=== PATIENT | female | born 1990 | race African-American/Black ===

== ENCOUNTER 2021-09-10 11:04 | Emergency (ER) | payer OTHER ==
[~2021-09-10] VITALS: Ht 167.6 cm; Wt 128.4 kg
[2021-09-10] MEDS ORDERED: LEVOTHYROXINE25 MCG PO (11:15)
[2021-09-10] MEDS ORDERED: PRENA1 TRUE CO1 EACH PO (11:15)
== END 2021-09-10 15:22 | disposition home or self-care (01) ==
LOC: ER 11:04
DX: O20.8 Other hemorrhage in early pregnancy (principal); O36.80X0 Pregnancy with inconclusive fetal viability, not applicable or unspecified; O26.852 Spotting complicating pregnancy, second trimester; O26.891 Other specified pregnancy related conditions, first trimester; R10.2 Pelvic and perineal pain; Z3A.01 Less than 8 weeks gestation of pregnancy; Z20.822 Contact with and (suspected) exposure to COVID-19

== ENCOUNTER 2021-09-20 12:54 | Emergency (ER) | payer OTHER ==
[~2021-09-20] VITALS: Ht 167.6 cm; Wt 121.6 kg
[~2021-09-20 12:54] MED LIST: LEVOTHYROXINE25 MCG PO; PRENA1 TRUE CO1 EACH PO
[2021-09-20] MEDS ORDERED: DIALYVITE 800-1 EACH PO (13:27)
[2021-09-20] MEDS ORDERED: PROMETRIUM200 MG PO (13:31)
== END 2021-09-20 18:36 | disposition home or self-care (01) ==
LOC: ER 12:54
DX: O20.9 Hemorrhage in early pregnancy, unspecified (principal); N39.0 Urinary tract infection, site not specified; R31.9 Hematuria, unspecified; Z3A.08 8 weeks gestation of pregnancy

== ENCOUNTER 2021-10-16 10:07 | Outpatient (CLI) | payer OTHER ==
[~2021-10-16 10:07] MED LIST changes: +DIALYVITE 800-1 EACH PO; +PROMETRIUM200 MG PO
== END 2021-10-16 11:00 | disposition home or self-care (01) ==
LOC: PRENATAL 10:07
PROVIDERS: ATTEND Obstetrics & Gynecology Maternal & Fetal Medicine
DX: O26.851 Spotting complicating pregnancy, first trimester (principal); O36.80X1 Pregnancy with inconclusive fetal viability, fetus 1; O99.891 Other specified diseases and conditions complicating pregnancy; O99.211 Obesity complicating pregnancy, first trimester; O34.11 Maternal care for benign tumor of corpus uteri, first trimester; Z36.89 Encounter for other specified antenatal screening; Z3A.12 12 weeks gestation of pregnancy

== ENCOUNTER 2021-12-13 11:35 | Outpatient (CLI) | payer OTHER | END 2021-12-13 14:00 | disposition home or self-care (01) | LOC: PRENATAL 11:35 | PROVIDERS: ATTEND Obstetrics & Gynecology Maternal & Fetal Medicine | DX: O35.0XX1 Maternal care for (suspected) central nervous system malformation in fetus, fetus 1 (principal); O35.3XX1 Maternal care for (suspected) damage to fetus from viral disease in mother, fetus 1; O98.512 Other viral diseases complicating pregnancy, second trimester; O99.891 Other specified diseases and conditions complicating pregnancy; O99.212 Obesity complicating pregnancy, second trimester; O34.12 Maternal care for benign tumor of corpus uteri, second trimester; Z36.89 Encounter for other specified antenatal screening; Z3A.20 20 weeks gestation of pregnancy ==

== ENCOUNTER 2022-02-05 10:05 | Outpatient (CLI) | payer OTHER | END 2022-02-05 11:32 | disposition home or self-care (01) | LOC: PRENATAL 10:05 | PROVIDERS: ATTEND Obstetrics & Gynecology Maternal & Fetal Medicine | DX: O26.849 Uterine size-date discrepancy, unspecified trimester (principal); O99.891 Other specified diseases and conditions complicating pregnancy; O99.210 Obesity complicating pregnancy, unspecified trimester; O34.10 Maternal care for benign tumor of corpus uteri, unspecified trimester ==

== ENCOUNTER 2022-03-22 09:39 | Outpatient (CLI) | payer OTHER | END 2022-03-22 11:42 | disposition home or self-care (01) | LOC: PRENATAL 09:39 | PROVIDERS: ATTEND Obstetrics & Gynecology Maternal & Fetal Medicine | DX: O26.849 Uterine size-date discrepancy, unspecified trimester (principal); O99.210 Obesity complicating pregnancy, unspecified trimester; Z3A.34 34 weeks gestation of pregnancy ==

== ENCOUNTER 2022-04-10 09:11 | Outpatient (CLI) | payer OTHER | END 2022-04-10 10:45 | disposition home or self-care (01) | LOC: PRENATAL 09:11 | PROVIDERS: ATTEND Obstetrics & Gynecology Maternal & Fetal Medicine | DX: O26.849 Uterine size-date discrepancy, unspecified trimester (principal); O99.891 Other specified diseases and conditions complicating pregnancy; O99.210 Obesity complicating pregnancy, unspecified trimester; O34.10 Maternal care for benign tumor of corpus uteri, unspecified trimester; O41.00X0 Oligohydramnios, unspecified trimester, not applicable or unspecified; Z3A.37 37 weeks gestation of pregnancy ==

== ENCOUNTER 2022-04-11 11:58 | Inpatient (IN) | payer OTHER ==
[~2022-04-11] VITALS: Ht 167.6 cm; Wt 1215.6 kg
[2022-04-12] MEDS ORDERED: SYNTHROID50 MCG PO (06:22)
[2022-04-15] MEDS ORDERED: IBUPROFEN800 MG PO (07:21)
== END 2022-04-15 13:50 | disposition home or self-care (01) | DRG 787 ==
LOC: OB/GYN 04-12 05:16 → O/R 04-12 05:16 → OB/GYN 04-12 13:30
PROVIDERS: ADMIT Specialist; ATTEND Specialist
PROC: 4A1HXCZ Monitoring of Products of Conception, Cardiac Rate, External Approach (ICD-10-PCS; 2022-04-12)
PROC: 10D00Z1 Extraction of Products of Conception, Low, Open Approach (ICD-10-PCS; principal; 2022-04-12 07:00)
DX: O33.8 Maternal care for disproportion of other origin (principal); O41.03X0 Oligohydramnios, third trimester, not applicable or unspecified; Z3A.37 37 weeks gestation of pregnancy; Z37.0 Single live birth; Z20.822 Contact with and (suspected) exposure to COVID-19

== ENCOUNTER 2023-10-28 16:21 | Emergency (ER) | payer OTHER ==
[~2023-10-28] VITALS: Ht 162.6 cm; Wt 107.0 kg
[~2023-10-28 16:21] MED LIST changes: +IBUPROFEN800 MG PO; +SYNTHROID50 MCG PO
[2023-10-28 17:37] LABS: PH,URINE 5.5 (5.0-8.0); URINE APPEARANCE Clear; URINE BILIRRUBIN Negative (NEGATIVE); URINE BLOOD Moderate; URINE COLOR Yellow; URINE GLUCOSE Negative (NEGATIVE); URINE LEUKOCYTE Trace; URINE NITRATE Negative; URINE PROTEIN Negative (NEGATIVE); URINE UROBILINOGEN 0.2 E.U./dl
[2023-10-28 17:38] LABS: HEMATOCRIT 38.8 % (36.0-45.00); HEMOGLOBIN 12.9 g/dL (12.0-15.00); MEAN CELL VOLUME 82.7 fL (80.00-100.00); MEAN CORPUSCULAR HEMOGLOBIN 27.5 pg (27.00-32.0); MEAN CORPUSCULAR HGB CONC 33.3 g/dl (32.0-36.0); PLATELET COUNT 319 K/uL (150-450); RED BLOOD COUNT 4.69 M/uL (4.00-6.00); RED CELL DISTRIBUTION WIDTH 14.3 % (11.5-14.5)
[2023-10-28 17:39] LABS: URINE BACTERIA 2077.6 uL (0.0-1933); URINE EPITHELIAL CELLS 43.5 uL (0.0-38.8); URINE RBC 7.4 uL (0.0-20.8); URINE WBC 21.3 uL (0.0-23.2)
[2023-10-28 17:55] LABS: INR 0.95
[2023-10-28 18:13] LABS: ANION GAP 7 (10.0-20.0); BLOOD UREA NITROGEN 12 mg/dL (7-18); BUN CREA RATIO 16 (7.0-25.0); CALCIUM 8.9 mg/dL (8.5-10.1); CARBON DIOXIDE 28 mEq/L (21-32); CHLORIDE 109 mmol/L (98-107); CREATININE SERUM 0.73 mg/dL (0.55-1.02); GFR 91.81; GLUCOSE FASTING 87 mg/dL (65-100); OSMOLALITY SERUM 279 MOSM/KG (275-295); POTASSIUM 3.75 mEq/L (3.5-5.1); SODIUM 140 mmol/L (136-145)
[2023-10-28 18:14] LABS: HCG QUANTITATIVE < 1 mUI/mL (1-3)
== END 2023-10-28 20:14 | disposition home or self-care (01) ==
LOC: ER 16:21
PROVIDERS: General Practice
DX: O20.8 Other hemorrhage in early pregnancy (principal); Z3A.01 Less than 8 weeks gestation of pregnancy; Z91.013 Allergy to seafood

== ENCOUNTER 2023-10-31 10:43 | Emergency (ER) | payer OTHER ==
[~2023-10-31] VITALS: Ht 167.6 cm; Wt 123.4 kg
[2023-10-31 12:34] LABS: HEMOGLOBIN 13.1 g/dL (12.0-15.00); MEAN CELL VOLUME 81.6 fL (80.00-100.00); MEAN CORPUSCULAR HEMOGLOBIN 27.5 pg (27.00-32.0); MEAN CORPUSCULAR HGB CONC 33.7 g/dl (32.0-36.0); PLATELET COUNT 331 K/uL (150-450); RED BLOOD COUNT 4.78 M/uL (4.00-6.00); RED CELL DISTRIBUTION WIDTH 14.4 % (11.5-14.5)
== END 2023-10-31 15:49 | disposition home or self-care (01) ==
LOC: ER 10:43
DX: O03.9 Complete or unspecified spontaneous abortion without complication (principal); Z91.013 Allergy to seafood

== ENCOUNTER 2025-11-22 06:08 | Emergency (ER) | payer OTHER ==
[~2025-11-22] VITALS: Ht 167.6 cm; Wt 129.7 kg
[2025-11-22] MEDS ORDERED: PRENATABS FA T1 EACH PO (06:15)
[2025-11-22] MEDS ORDERED: KETOROLAC TROMETHAMINE 10 MG TABLET PO ONE ×2 (07:45→08:37)
[2025-11-22 10:57] LABS: BASO % 0.4 % (0.1-1.2); EOS # 0.15 (0.04-0.54); EOS % 1.1 % (0.7-7.0); LYMPH # 2.13 (1.18-3.74); LYMPH % 16.2 % (19.3-53.1); MEAN PLATELET VOLUME 9.40 fl (9.4-12.4); MONO # 0.78 (0.24-0.82); MONO % 5.9 % (4.7-12.5); NEUT # 9.94 (1.56-6.13); NEUT % 75.9 % (34.0-71.1); RED CELL DISTRIBUTION WIDTH 13.9 % (11.6-14.4)
[2025-11-22 11:06] LABS: URINE APPEARANCE Clear; URINE BILIRRUBIN Negative (NEGATIVE); URINE BLOOD Negative; URINE COLOR Yellow; URINE GLUCOSE Negative (NEGATIVE); URINE KETONE Negative (NEGATIVE); URINE LEUKOCYTE Negative; URINE NITRATE Negative; URINE PROTEIN Negative (NEGATIVE); URINE UROBILINOGEN 1.0 E.U./dl
[2025-11-22 11:08] LABS: URINE BACTERIA 2275.3 uL (0.0-1933); URINE EPITHELIAL CELLS 42.3 uL (0.0-38.8); URINE RBC 4.2 uL (0.0-20.8); URINE WBC 16.0 uL (0.0-23.2)
[2025-11-22 11:20] LABS: URINE CAST 0.28 uL (0.0-1.40)
== END 2025-11-22 12:49 | disposition home or self-care (01) ==
LOC: ER 06:09
PROVIDERS: General Practice
DX: O26.891 Other specified pregnancy related conditions, first trimester (principal); M54.89 Other dorsalgia; O23.31 Infections of other parts of urinary tract in pregnancy, first trimester; N39.0 Urinary tract infection, site not specified; Z3A.11 11 weeks gestation of pregnancy; Z91.013 Allergy to seafood; E03.9 Hypothyroidism, unspecified